=== PATIENT | female | born 1940 | race Caucasian/White ===

== ENCOUNTER 2019-08-01 08:35 | Emergency (ER) | payer OTHER ==
[2019-08-01 09:30] LABS: APPEARANCE,URINE CLOUDY (CLEAR); BILIRUBIN,URINE SMALL (NEGATIVE); COLOR,URINE YELLOW (YELLOW); GLUCOSE, URINE (UA) NEGATIVE (NEGATIVE); KETONES,URINE 5 mg/dL (NEGATIVE); LEUKOCYTE ESTERASE ,URINE LARGE (NEGATIVE); NITRATE,URINE POSITIVE (NEGATIVE); OCCULT BLOOD,URINE LARGE (NEGATIVE); PROTEIN,URINE 30 mg/dL (NEGATIVE)
[2019-08-01 09:46] LABS: RBC,URINE >100 /HPF (0-1); WBC,URINE TNTC /HPF (0-1)
[2019-08-01 09:47] LABS: BACTERIA,URINE Moderate /HPF (None Seen); SQUAMOUS EPITHELIAL CELL,UR Rare /HPF (0-2)
[2019-08-01] MEDS ORDERED: LIDOCAINE HCL-MPF 1% 2ML VIAL ONE (09:52)
== END 2019-08-01 10:24 | disposition home or self-care (01) ==
LOC: EDH 08:35
DX: N39.0 Urinary tract infection, site not specified (principal); R31.9 Hematuria, unspecified; M19.90 Unspecified osteoarthritis, unspecified site; M41.9 Scoliosis, unspecified
CPT/HCPCS: 81001; 96372; 99283; J3490